=== PATIENT | male | born 1975 | race Caucasian/White ===

== ENCOUNTER 2017-06-03 17:48 | Emergency (ER) | payer MEDICAID, OTHER ==
[2017-06-03 18:45] VITALS: BP 121/67
--- NOTE | 2017-06-03 19:52 | RAD ---
Indication: LEFT index finger pain following hyperextension injury. Comparison: No relevant prior exams available on the [facility] for comparison. Technique: AP, lateral, and oblique views LEFT second finger. REPORT AND IMPRESSION: Negative for fracture or malalignment. Soft tissue swelling from the metacarpal phalangeal joint through the tip of the finger. No conspicuous foreign body or subcutaneous emphysema.
--- NOTE | 2017-06-03 19:56 | UC ---
Hand/Wrist HPI - HPI Summary HPI Summary: Pt was sitting on porch. Large dog ran out and he grabbed collar. pt states index finger left hand caught in collar and extended. pt states paiin at MCP. No open wound. no ice, no analgesia. Pt states initially "severe pain" now, not so back Feels stiff with movement. no parasthesia RHD pt's medications reviewed this visit - History Of Current Complaint Chief Complaint: UCUpperExtremity Stated Complaint: HAND INJURY Time Seen by Provider: 06/03/17 19:47 Hx Obtained From: Patient Onset/Duration: Sudden Onset Severity Initially: Moderate Severity Currently: Mild Pain Intensity: 2 Character Of Pain: Stiffness Aggravating Factor(s): Movement, Flexion - Allergies/Home Medications Allergies/Adverse Reactions: Allergies Allergy/AdvReac Type Severity Reaction Status Date / Time Penicillins Allergy Unknown Verified 06/03/17 18:44 Reaction Details Home Medications: Home Medications NK [No Home Medications Reported] 06/03/17 [History Confirmed 06/03/17] PMH/Surg Hx/FS Hx/Imm Hx Previously Healthy: Yes - Surgical History Surgical History: Yes Surgery Procedure, Year, and Place: appy - Social History Occupation: Employed Full-time Lives: With Family Alcohol Use: Daily Substance Use Type: None Smoking Status (MU): Heavy Every Day Tobacco Smoker Type: Cigarettes Amount Used/How Often: 1/2 ppd - Immunization History Most Recent Influenza Vaccination: no Review of Systems Skin: Negative Neurovascular: Negative Musculoskeletal: Negative All Other Systems Reviewed And Are Negative: Yes Physical Exam Triage Information Reviewed: Yes Appearance: Well-Appearing, No Pain Distress Vital Signs: Initial Vital Signs Temp 98 F 06/03/17 18:38 Pulse 77 06/03/17 18:38 Resp 14 06/03/17 18:38 BP 121/67 06/03/17 18:38 Pulse Ox 100 06/03/17 18:38 Vital Signs Reviewed: Yes Eyes: Positive: Conjunctiva Clear Respiratory: Positive: No respiratory distress, No accessory muscle use Cardiovascular: Positive: Other: - 2+ radial, cbt < 2 sec digit Musculoskeletal: Positive: Strength Intact, ROM Intact, No Edema, Other: - + flex/ext mcp, pip, dip against resistance No weakness with lateral joint testing No crepitus No deformity Neurological: Positive: Alert, Other: - + sensation throughout finger Psychological Exam: Normal Diagnostics - Radiology No standard instances Radiology Interpretation Completed By: Radiologist - no fx Hand/Wrist Course/Dx - Course Course Of Treatment: Pt presents with discomfort MCP and 1st phalynx after forced inline traction. pt with mild discomfort but full CSM. Will check imaging. if neg, splint. pt declined analgesia. motrin/apap prn. ice. rest - Differential Dx/Diagnosis Provider Diagnoses: finger sprain Discharge - Discharge Plan Condition: Stable Disposition: HOME Patient Education Materials: Finger Sprain (ED) Forms: *Gen. Provider Communication Referrals: Aric Telles MD [Primary Care Provider] - Additional Instructions: - Okay to alternate ibuprofen (motrin, advil) and tylenol every 3 hours for pain. Take with food. do NOT take for more than 4-5 days - Wear finger splint as much as possible for comfort and support - Okay to apply ice (wrapped in a towel) 20 minutes at a time, 2-3 times a day - call your doctor to schedule a follow-up appointment. call your doctor or return with questions or concerns
== END 2017-06-03 20:12 | disposition home or self-care (01) ==
LOC: UCCORT 17:48
DX: S63.651A Sprain of metacarpophalangeal joint of left index finger, initial encounter (principal); W23.0XXA Caught, crushed, jammed, or pinched between moving objects, initial encounter; Y93.89 Activity, other specified; Y92.008 Other place in unspecified non-institutional (private) residence as the place of occurrence of the external cause; Z88.0 Allergy status to penicillin; F17.210 Nicotine dependence, cigarettes, uncomplicated
CPT/HCPCS: 73140; 99201; G0463